=== PATIENT | male | born 1955 | race African-American/Black ===

== ENCOUNTER 2019-04-18 07:20 | Emergency (ER) | payer MEDICARE ==
[~2019-04-18 07:20] MED LIST: AMLO10TA8 PO; ASPI-482 PO; ATORVASTATIN CA80 MG PO; CYCL10TA2 PO; LISI1TAB19 PO; METO25TA4 PO
[2019-04-18] MEDS ORDERED: IPRATRPIUM/ALBUTEROL 0.5/2.5MG 3 ML NEBU. NEB ONE (07:45)
[2019-04-18] MEDS ORDERED: ASPIRIN CHEWABLE 81 MG TABLET. PO ONE (07:45)
[2019-04-18] MEDS ORDERED: IPRATRPIUM/ALBUTEROL 0.5/2.5MG 3 ML NEBU. ONE (07:46)
[2019-04-18 07:53] LABS: BASO # 0.1 x10^3/uL (0.0-0.2); BASO % 1 % (0-3); EOS # 0.3 x10^3/uL (0.0-0.7); EOS % 4 % (0-3); HEMATOCRIT 40.4 % (39.0-53.0); HEMOGLOBIN 13.1 g/dL (13.0-17.5); LYMPH # 2.5 x10^3/uL (1.0-4.8); LYMPH % 31 % (24-48); MEAN CORPUSCULAR HEMOGLOBIN 27 pg (25-35); MEAN CORPUSCULAR HGB CONC 32 g/dL (31-37); MEAN CORPUSCULAR VOLUME 83 fL (79-100); MONO # 0.8 x10^3/uL (0.0-1.1); MONO % 10 % (0-9); NEUT # 4.4 x10^3/uL (1.8-7.7); NEUT % 55 % (31-73); PLATELET COUNT 271 x10^3/uL (140-400); RED BLOOD COUNT 4.86 x10^6/uL (4.30-5.70); RED CELL DISTRIBUTION WIDTH 16.7 % (11.5-14.5)
[2019-04-18 07:59] LABS: CALCIUM 9.3 mg/dL (8.5-10.1); GFR 90.7; POTASSIUM 4.6 mmol/L (3.5-5.1)
[2019-04-18 08:05] LABS: ALBUMIN 3.7 g/dL (3.4-5.0); TOTAL BILIRUBIN 0.2 mg/dL (0.2-1.0); TOTAL PROTEIN 7.4 g/dL (6.4-8.2)
[2019-04-18 08:06] LABS: PROTHROMBIN TIME PATIENT 12.9 SEC (11.7-14.0)
[2019-04-18 08:10] LABS: D-DIMER 0.35 ug/mlFEU (0.00-0.50)
--- NOTE | 2019-04-18 08:12 | RAD ---
Exam performed: One view chest. Indication: Chest pain Date of Service: 04/18/2019 7:36 AM Comparison: 2 views chest from July 03, 2015. Single AP upright portable view chest findings: Cardiomediastinal silhouette is within limits of normal. No acute infiltrates, effusion or pneumothorax is detected. The bony structures are normal. Impression: No acute cardiopulmonary process is detected. Electronically signed by: Latesha Denise MD (04/18/2019 8:09 AM) [facility]
--- NOTE | 2019-04-18 09:13 | EKG ---
[facility] [address] [place] [address] Test Date: 2019-04-18 Test Time: 07:23:09 Pat Name: ZULEIMA RHODES Department: Room: Gender: M [employer]: : [id number] Requested By: JONATHON PICKETT Order Number: [id number] Reading MD: Measurements Intervals Oneco Rate: 92 P: -51 NJ: 138 QRS: -10 QRSD: 86 T: 52 QT: 338 QTc: 423 Interpretive Statements SINUS RHYTHM LEFTWARD AXIS OTHERWISE NORMAL ECG RI6.01 No previous ECG available for comparison
--- NOTE | 2019-04-18 09:15 | PHYS DOC ---
Past Medical History Past Medical History: Asthma, CVA, Diabetes-Type II, High Cholesterol, Hypertension, PA Past Surgical History: No Surgical History Alcohol Use: Occasionally Drug Use: None Adult General Chief Complaint Chief Complaint: CHEST PAIN HPI HPI Patient is a 64 year old [male presents with chief complaint of chest pain. Onset over the last 2 or 3 days intermittent in nature he says it feels warm heat been coughing a little bit he thinks he might of heartburn. Symptoms come and go usually at rest occasionally with walking. He does have a prior history of myocardial infarction status post coronary artery disease and stent placement 5 years ago that has been stable does not recall a recent stress test. Not pleuritic no fever ED course patient received albuterol times one this symptoms resolved completely. I really asked him to stay overnight in the hospital he thought it would be best for him to do so. He did not want to stay he said that he really thought he has bronchitis she's felt this way with bronchitis before he still smoking history and quit his symptoms resolved completely after albu terol. We agreed on a second troponin the emergency room he is aware of the risk of leaving including missed heart attack which could ultimately be fatal. Review of Systems Review of Systems Constitutional: Denies fever or chills [] Eyes: Denies change in visual acuity, redness, or eye pain [] HENT: Denies nasal congestion or sore throat [] Respiratory: Denies cough or shortness of breath [] Cardiovascular: No additional information not addressed in HPI [] GI: Denies abdominal pain, nausea, vomiting, bloody stools or diarrhea [] : Denies dysuria or hematuria [] Musculoskeletal: Denies back pain or joint pain [] Integument: Denies rash or skin lesions [] Neurologic: Denies headache, focal weakness or sensory changes [] Endocrine: Denies polyuria or polydipsia [] All other systems were reviewed and found to be within normal limits, except as documented in this note. Current Medications Current Medications Current Medications Medications (Trade) Dose Ordered Sig/Chad Start Time Stop Time Status Last Admin Dose Admin Albuterol/ Ipratropium (Duoneb) 3 ml STK-MED ONCE 04/18/19 07:46 04/18/19 07:46 DC Aspirin (Children'S Aspirin) 324 mg 1X ONCE 04/18/19 07:45 04/18/19 07:46 DC 04/18/19 08:28 243 MG Allergies Allergies Allergies Coded Allergies Type Severity Reaction Last Updated Verified No Known Drug Allergies 07/03/15 No Physical Exam Physical Exam Constitutional: Well developed, well nourished, no acute distress, non-toxic appearance. [] HENT: Normocephalic, atraumatic, bilateral external ears normal, oropharynx moist, no oral exudates, nose normal. [] Eyes: PERRLA, EOMI, conjunctiva normal, no discharge. [] Neck: Normal range of motion, no tenderness, supple, no stridor. [] Cardiovascular:Heart rate regular rhythm, no murmur [] Lungs & faint wheezing bilaterally which resolved on after albuterol Abdomen: Bowel sounds normal, soft, no tenderness, no masses, no pulsatile masses. [] Skin: Warm, dry, no erythema, no rash. [] Back: No tenderness, no CVA tenderness. [] Extremities: No tenderness, no cyanosis, no clubbing, ROM intact, 1+ edema bilaterally Neurologic: Alert and oriented X 3, normal motor function, normal sensory function, no focal deficits noted. [] Psychologic: Affect normal, judgement normal, mood normal. [] Current Patient Data Vital Signs Vital Signs Date Time Temp Pulse Resp B/P (MAP) Pulse Ox O2 Delivery O2 Flow Rate FiO2 04/18/19 11:08 80 15 154/81 (105) Room Air 04/18/19 10:40 91 04/18/19 07:20 98.3 98.3 Lab Values Laboratory Tests Test 04/18/19 07:30 04/18/19 10:08 White Blood Count 8.0 x10^3/uL (4.0-11.0) Red Blood Count 4.86 x10^6/uL (4.30-5.70) Hemoglobin 13.1 g/dL (13.0-17.5) Hematocrit 40.4 % (39.0-53.0) Mean Corpuscular Volume 83 fL (79-100) Mean Corpuscular Hemoglobin 27 pg (25-35) Mean Corpuscular Hemoglobin Concent 32 g/dL (31-37) Red Cell Distribution Width 16.7 % (11.5-14.5) H Platelet Count 271 x10^3/uL (140-400) Neutrophils (%) (Auto) 55 % (31-73) Lymphocytes (%) (Auto) 31 % (24-48) Monocytes (%) (Auto) 10 % (0-9) H Eosinophils (%) (Auto) 4 % (0-3) H Basophils (%) (Auto) 1 % (0-3) Neutrophils # (Auto) 4.4 x10^3/uL (1.8-7.7) Lymphocytes # (Auto) 2.5 x10^3/uL (1.0-4.8) Monocytes # (Auto) 0.8 x10^3/uL (0.0-1.1) Eosinophils # (Auto) 0.3 x10^3/uL (0.0-0.7) Basophils # (Auto) 0.1 x10^3/uL (0.0-0.2) Prothrombin Time 12.9 SEC (11.7-14.0) Prothrombin Time INR 1.0 (0.8-1.1) D-Dimer (Margie) 0.35 ug/mlFEU (0.00-0.50) Sodium Level 139 mmol/L (136-145) Potassium Level 4.6 mmol/L (3.5-5.1) Chloride Level 100 mmol/L (98-107) Carbon Dioxide Level 31 mmol/L (21-32) Anion Gap 8 (6-14) Blood Urea Nitrogen 13 mg/dL (8-26) Creatinine 1.0 mg/dL (0.7-1.3) Estimated GFR (Cockcroft-Gault) 90.7 BUN/Creatinine Ratio 13 (6-20) Glucose Level 116 mg/dL (70-99) H Calcium Level 9.3 mg/dL (8.5-10.1) Total Bilirubin 0.2 mg/dL (0.2-1.0) Aspartate Amino Transferase (AST) 19 U/L (15-37) Alanine Aminotransferase (ALT) 37 U/L (16-63) Alkaline Phosphatase 63 U/L (46-116) Troponin I Quantitative < 0.017 ng/mL (0.000-0.055) < 0.017 ng/mL (0.000-0.055) SB-Iem-B-Type Natriuretic Peptide 45 pg/mL (0-124) Total Protein 7.4 g/dL (6.4-8.2) Albumin 3.7 g/dL (3.4-5.0) Albumin/Globulin Ratio 1.0 (1.0-1.7) Laboratory Tests 04/18/19 07:30 Laboratory Tests 04/18/19 07:30 EKG EKG []EKG shows normal sinus rhythm no acute ischemic changes noted interpreted by me the time of encounter. No STEMI Radiology/Procedures Radiology/Procedures [] Impressions: Exam performed: One view chest. Indication: Chest pain Date of Service: 04/18/2019 7:36 AM Comparison: 2 views chest from July 03, 2015. Single AP upright portable view chest findings: Cardiomediastinal silhouette is within limits of normal. No acute infiltrates, effusion or pneumothorax is detected. The bony structures are normal. Impression: No acute cardiopulmonary process is detected. Electronically signed by: Angelika Denise MD (04/18/2019 8:09 AM) [facility] DICTATED and SIGNED BY: ANGELIKA DENISE MD DATE: 04/18/19 0809 Course & Med Decision Making Course & Med Decision Making Pertinent Labs and Imaging studies reviewed. (See chart for details) []64-year-old male with known coronary artery disease presenting with presenting with chest pain. He did have some faint wheezing this resolved after albuterol and his symptoms went away completely troponin and EKG are negative. I was concerned about the possibility of cardiac related chest pain and did ask him to stay overnight in the hospital see history of present illness for discussion he was reluctant to do so I could not convince him to stay we agreed on a second troponin. Second troponin negative patient's feeling better nevertheless we did have him sign an AMA form. See history of present illness for detailed information regarding this conversation. He does understand the risk of leaving up to and including he is of sound mind he can repeat back to me we talked about he is aware of the risks benefits and alternatives and I offered him to come back any time Raphael Disclaimer Dragkasey Disclaimer This electronic medical record was generated, in whole or in part, using a voice recognition dictation system. Departure Departure Impression: Primary Impression: Chest pain Disposition: HOME, SELF-CARE Condition: STABLE Referrals: UNKNOWN PCP NAME (PCP) Patient Instructions: Chest Pain (Nonspecific) JONATHON PICKETT MD Apr 18, 2019 09:15
[2019-04-18 11:08] VITALS: BP 154/81
== END 2019-04-18 11:08 | disposition home or self-care (01) ==
LOC: ER 07:20
DX: R07.89 Other chest pain (principal); R05 Cough; E11.9 Type 2 diabetes mellitus without complications; E78.00 Pure hypercholesterolemia, unspecified; J45.909 Unspecified asthma, uncomplicated; I10 Essential (primary) hypertension; I25.2 Old myocardial infarction; Z86.73 Personal history of transient ischemic attack (TIA), and cerebral infarction without residual deficits; Z87.891 Personal history of nicotine dependence
CPT/HCPCS: 36415; 71045; 80053; 83880; 84484; 85025; 85379; 85610; 93005; 94640; 99285; J7620